=== PATIENT | female | born 1975 | race Caucasian/White ===

== ENCOUNTER 2025-04-30 12:42 | Outpatient (CLI) | payer BC | END 2025-04-30 12:43 | disposition home or self-care (01) | LOC: CSHMRI 12:42 | PROVIDERS: ATTEND Nurse Practitioner Family | DX: M54.51 Vertebrogenic low back pain (principal); M48.061 Spinal stenosis, lumbar region without neurogenic claudication; M48.07 Spinal stenosis, lumbosacral region | CPT/HCPCS: 72148 ==